=== PATIENT | male | born 1980 ===

== ENCOUNTER 2018-09-17 14:06 | Emergency (ER) | payer OTHER ==
[2018-09-17 14:08] VITALS: RESP 18; TEMP 98.2; BMI 36.0
--- NOTE | 2018-09-17 14:19 | ED PDOC ---
Arrival/HPI - General Time Seen by Provider: 09/17/18 14:07 Historian: Patient - History of Present Illness Narrative History of Present Illness (Text): 09/17/18 14:13 38 y/o male, no significant pmh, nkda, c/o rt. ankle inversion injury and pain x 2 hours. Pt. stated that he was injured twisting injury, twisted the rt. ankle, has pain to the rt. ankle and mildly to the foot, no numbness or tingling, no calf pain, no rash, no diarrhea, no other injury or pain, no other medical or psychological complaints. Past Medical History - Provider Review Nursing Documentation Reviewed: Yes Family/Social History - Physician Review Nursing Documentation Reviewed: Yes Family/Social History: Unknown Family HX Allergies/Home Meds Allergies/Adverse Reactions: Allergies No Known Allergies Allergy (Verified 09/17/18 14:17) Review of Systems - Review of Systems Constitutional: absent: Fatigue, Fevers Eyes: absent: Vision Changes ENT: absent: Hearing Changes Respiratory: absent: SOB, Cough Gastrointestinal: absent: Abdominal Pain, Diarrhea, Nausea, Vomiting Musculoskeletal: Arthralgias. absent: Back Pain, Neck Pain Skin: absent: Rash, Pruritis, Skin Lesions Neurological: absent: Headache, Dizziness Psychiatric: absent: Anxiety, Depression, Suicidal Ideation Physical Exam Vital Signs Reviewed: Yes Vital Signs Temp Pulse Resp BP Pulse Ox 09/17/18 14:07 98.2 F 69 18 158/108 H 98 Temperature: Afebrile Blood Pressure: Hypertensive Pulse: Regular Respiratory Rate: Normal Appearance: Positive for: Well-Appearing, Non-Toxic, Comfortable Pain Distress: Mild Mental Status: Positive for: Alert and Oriented X 3 - Systems Exam Head: Present: Atraumatic, Normocephalic Pupils: Present: PERRL Extroacular Muscles: Present: EOMI Conjunctiva: Present: Normal Mouth: Present: Moist Mucous Membranes Neck: Present: Normal Range of Motion Respiratory/Chest: Present: Clear to Auscultation, Good Air Exchange. No: Respiratory Distress, Accessory Muscle Use Cardiovascular: Present: Regular Rate and Rhythm, Normal S1, S2. No: Murmurs Abdomen: No: Tenderness, Distention, Peritoneal Signs Back: Present: Normal Inspection Upper Extremity: Present: Normal Inspection. No: Cyanosis, Edema Lower Extremity: Present: Normal Inspection, NORMAL PULSES, Normal ROM, Neurovascularly Intact, Capillary Refill < 2 s, Other (Rt. ankle/foot: +ttp on the lateral ankle with mild swelling, mild +ttp on the rt. dorsum aspect of the foot, negative jerrica and martinez signs, FROM without limitation, sensation intact, motor 5/5, +DPPT pulses, capillary refill< 2 seconds, neurovascular intact, no signs of compartment syndrome. ). No: Edema, Deformity Neurological: Present: GCS=15, CN II-XII Intact, Speech Normal, Motor Func Grossly Intact, Gait Normal, Memory Normal Skin: Present: Warm, Dry, Normal Color. No: Rashes Psychiatric: Present: Alert, Oriented x 3, Normal Insight, Normal Concentration Medical Decision Making ED Course and Treatment: 09/17/18 14:24 -rt. ankle/foot xray -Motrin -Observe and reassess 09/17/18 14:58 -Rt. ankle xray No acute fracture. There is a well corticated bone fragment inferior to the lateral malleolus. -Rt. foot xray Normal right foot radiographs. -I discussed the xray with the patient including the well corticated bone fragment which uncertain of chronicity (likely chronic), will splint him. -Pt. feels well, improved, posterior splint applied by me with neurovascular intact. -Discharge home with motrin, posterior splint, crutches, ice compression, follow up with your own pmd and orthopedic/alum plant operator within 2 days, return to the ER for any new or worsening signs or symptoms. - RAD Interpretation Radiology Orders: -Rt. ankle xray Date of service: 09/17/2018 PROCEDURE: Right Wrist Radiographs. HISTORY: rt. ankle inversion injury, pain COMPARISON: None. FINDINGS: BONES: No acute fracture. There is a well corticated bone fragment inferior to the lateral malleolus. JOINTS: Normal. No dislocation. SOFT TISSUES: Normal. OTHER FINDINGS: None. IMPRESSION: No acute fracture -Rt. foot xray Date of service: 09/17/2018 PROCEDURE: Right Foot Radiographs. HISTORY: rt. ankle inversion injury, pain COMPARISON: None. FINDINGS: BONES: Normal. No fracture. JOINTS: Normal. SOFT TISSUES: Normal. OTHER FINDINGS: None. IMPRESSION: Normal right foot radiographs. Wharfmaster: Radiologist - PA / [employer] / Resident Statement MD/DO has reviewed & agrees with the documentation as recorded. Disposition/Present on Arrival - Present on Arrival Any Indicators Present on Arrival: No History of DVT/PE: No History of Uncontrolled Diabetes: No Urinary Catheter: No History of Decub. Ulcer: No - Disposition Have Diagnosis and Disposition been Completed?: Yes Diagnosis: Ankle injury, Ankle pain, Abnormal x-ray Disposition: HOME/ ROUTINE Disposition Time: 14:55 Patient Plan: Discharge Patient Problems: Current Active Problems Problem Status Onset Ankle injury Acute Ankle pain Acute Abnormal x-ray Acute Condition: GOOD Additional Instructions: -Discharge home with motrin, posterior splint, crutches, ice compression, follow up with your own pmd and orthopedic/alum plant operator within 2 days, return to the ER for any new or worsening signs or symptoms. Prescriptions: Ibuprofen [Motrin] 600 mg PO QID PRN #30 tab PRN Reason: Other Referrals: [facility] at [facility] – [place], [place] [Outside] - Follow up with primary Jarek Montoya III, MD [Medical Doctor] - Follow up with primary Jorge Luis Gomez DPM [Staff Provider] - Follow up with primary Forms: WORK NOTE
--- NOTE | 2018-09-17 14:55 | RAD ---
Date of service: 09/17/2018 PROCEDURE: Right Foot Radiographs. HISTORY: rt. ankle inversion injury, pain COMPARISON: None. FINDINGS: BONES: Normal. No fracture. JOINTS: Normal. SOFT TISSUES: Normal. OTHER FINDINGS: None. IMPRESSION: Normal right foot radiographs.
--- NOTE | 2018-09-17 14:56 | RAD ---
Date of service: 09/17/2018 PROCEDURE: Right Wrist Radiographs. HISTORY: rt. ankle inversion injury, pain COMPARISON: None. FINDINGS: BONES: No acute fracture. There is a well corticated bone fragment inferior to the lateral malleolus. JOINTS: Normal. No dislocation. SOFT TISSUES: Normal. OTHER FINDINGS: None. IMPRESSION: No acute fracture
[2018-09-17 15:08] VITALS: BP 142/76; PULSE 79; O2SAT 97
== END 2018-09-17 16:08 | disposition home or self-care (01) ==
LOC: ED 14:06
DX: S99.911A Unspecified injury of right ankle, initial encounter (principal); X50.1XXA Overexertion from prolonged static or awkward postures, initial encounter; Y92.89 Other specified places as the place of occurrence of the external cause; Y99.8 Other external cause status; M25.571 Pain in right ankle and joints of right foot; R93.7 Abnormal findings on diagnostic imaging of other parts of musculoskeletal system